=== PATIENT | male | born 1970 | race Two or more races ===

== ENCOUNTER 2020-11-02 10:40 | Inpatient (IN) | payer OTHER ==
[2020-11-02 11:27] VITALS: BMI 20.7
[2020-11-02] MEDS ORDERED: MENTHOL/PHENOL 1 EACH UD MM PRN (13:38)
[2020-11-02] MEDS ORDERED: METHADONE HCL 10 MG TABLET (FOR DETOX USE ONLY) PO ONE (13:38)
[2020-11-02] MEDS ORDERED: NICOTINE POLACRILEX 2 MG GUM BUC PRN (13:38)
[2020-11-02] MEDS ORDERED: MAG HYDROX/AL HYDROX/SIMETH 30 ML UNIT-DOSE CUP PO PRN (13:38)
[2020-11-02] MEDS ORDERED: MAGNESIUM HYDROX 2400MG/30ML ORAL SUSPENSION 30 ML CUP PO PRN (13:38)
[2020-11-02] MEDS ORDERED: BISMUTH SUBSALICYLATE 262 MG/15 ML BTL PO PRN (13:38)
[2020-11-02] MEDS ORDERED: MAGNESIUM CITRATE 300 ML BOTTLE PO PRN (13:38)
[2020-11-02] MEDS ORDERED: chlordiazePOXIDE HCL 25 MG CAPSULE PO PRN (13:38)
[2020-11-02] MEDS ORDERED: METHOCARBAMOL 500 MG TABLET PO PRN (13:38)
[2020-11-02] MEDS ORDERED: ONDANSETRON *ODT* 4 MG TABLET SL PRN (13:38)
[2020-11-02] MEDS ORDERED: ACETAMINOPHEN 325 MG TABLET (FP) PO PRN ×2 (13:38)
[2020-11-02] MEDS ORDERED: cloNIDine HCL 0.1 MG TABLET PO PRN (13:38)
[2020-11-02] MEDS: NICOTINE 21 MG/24 HOURS TOPICAL PATCH TD SCH (15:20)
[2020-11-02] MEDS: TOLNAFTATE 1% CREAM 15 GM TUBE TP SCH ×2 (15:25→21:32)
[2020-11-02] MEDS: PRENATAL VITAMINS W/ FOLIC ACID TABLET (FP) PO SCH (15:25)
[2020-11-02] MEDS: hydrOXYzine PAMOATE 25 MG CAPSULE (FP) PO SCH ×3 (15:28→21:17)
[2020-11-02 17:30] LABS: POTASSIUM 3.9 mmol/L (3.5-5.1)
[2020-11-02 17:32] LABS: CALCIUM 9.2 mg/dL (8.5-10.1)
[2020-11-02 17:33] LABS: ALBUMIN 3.9 g/dl (3.4-5.0)
[2020-11-02 17:36] LABS: CREATININE 1.1 mg/dL (0.55-1.3); HEMATOCRIT 41.2 % (35.4-49); HEMOGLOBIN 14.3 GM/dL (11.7-16.9); MCH 33.1 pg (25.7-33.7); MCHC 34.7 g/dl (32.0-35.9); MEAN CELL VOLUME 95.3 fl (80-96); MEAN PLT VOLUME 8.2 fl (7.5-11.1); PLATELET COUNT 299 K/MM3 (134-434); RBC 4.32 M/mm3 (4.00-5.60); WHITE BLOOD COUNT 7.3 K/mm3 (4.0-10.0)
[2020-11-02 17:37] LABS: BILIRUBIN,TOTAL 0.4 mg/dL (0.2-1)
[2020-11-02 17:38] LABS: TOT PROT 8.2 g/dl (6.4-8.2)
[2020-11-02] MEDS: chlordiazePOXIDE HCL 25 MG CAPSULE PO SCH ×2 (18:12→22:00)
[2020-11-02] MEDS: THIAMINE HCL 100 MG TABLET (FP) PO SCH (21:17)
[2020-11-02] MEDS: MELATONIN 5 MG TABLETS PO SCH (21:17)
[2020-11-03] MEDS: hydrOXYzine PAMOATE 25 MG CAPSULE (FP) PO SCH ×5 (06:03→23:10)
[2020-11-03] MEDS: chlordiazePOXIDE HCL 25 MG CAPSULE PO SCH ×4 (06:04→23:08)
[2020-11-03] MEDS ORDERED: METHADONE HCL 10 MG TABLET (FOR DETOX USE ONLY) ONE (06:42)
[2020-11-03] MEDS ORDERED: METHADONE HCL 40 MG DISPERSABLE TABLET ONE (06:42)
[2020-11-03] MEDS: METHADONE 40 MG, METHADONE (DETOX) 30 MG PO SCH (06:44)
[2020-11-03] MEDS ORDERED: METHADONE HCL 10 MG TABLET PO SCH (06:45)
[2020-11-03] MEDS ORDERED: MASKS NR ONE (09:34)
[2020-11-03] MEDS ORDERED: COLLOIDAL OATMEAL 1 BAR EACH TP PRN (09:40)
[2020-11-03] MEDS ORDERED: METHADONE (DETOX) 20 MG, METHADONE (DETOX) 5 MG PO ONE (10:00)
[2020-11-03] MEDS ORDERED: METHADONE 40 MG, METHADONE 30 MG PO SCH (10:00)
[2020-11-03] MEDS ORDERED: METHADONE HCL 40 MG DISPERSABLE TABLET PO SCH (10:00)
[2020-11-03] MEDS: BACITRACIN 0.9 GM PACKET TP SCH ×2 (10:12→23:04)
[2020-11-03] MEDS: NICOTINE 21 MG/24 HOURS TOPICAL PATCH TD SCH (10:13)
[2020-11-03] MEDS: TOLNAFTATE 1% CREAM 15 GM TUBE TP SCH ×2 (10:13→23:10)
[2020-11-03] MEDS: PRENATAL VITAMINS W/ FOLIC ACID TABLET (FP) PO SCH (10:13)
[2020-11-03] MEDS: MINERAL OIL/PETROLAT/WATER TOPICAL CREAM 113 GM JAR TP SCH ×2 (10:50→23:07)
[2020-11-03 12:35] LABS: HIV INTERPRETATION NEGATIVE (NEGATIVE)
[2020-11-03] MEDS: IBUPROFEN 400 MG TABLET (FP) PO PRN (17:42)
[2020-11-03] MEDS: MELATONIN 5 MG TABLETS PO SCH (23:09)
[2020-11-03] MEDS: THIAMINE HCL 100 MG TABLET (FP) PO SCH (23:10)
[2020-11-04] MEDS ORDERED: METHADONE HCL 40 MG DISPERSABLE TABLET ONE (04:02)
[2020-11-04] MEDS ORDERED: METHADONE HCL 10 MG TABLET (FOR DETOX USE ONLY) ONE (04:02)
[2020-11-04] MEDS: hydrOXYzine PAMOATE 25 MG CAPSULE (FP) PO SCH ×2 (06:03→10:20)
[2020-11-04] MEDS: METHADONE 40 MG, METHADONE (DETOX) 30 MG PO SCH (06:05)
[2020-11-04] MEDS: chlordiazePOXIDE HCL 25 MG CAPSULE PO SCH ×4 (06:06→23:20)
[2020-11-04] MEDS: IBUPROFEN 400 MG TABLET (FP) PO PRN ×2 (07:09→18:00)
[2020-11-04] MEDS ORDERED: BACITRACIN 0.9 GM PACKET TP SCH (10:00)
[2020-11-04] MEDS ORDERED: METHADONE HCL 10 MG TABLET (FOR DETOX USE ONLY) PO ONE (10:00)
[2020-11-04] MEDS ORDERED: BACITRACIN 15 GM TUBE TOPICAL OINTMENT TP SCH (10:00)
[2020-11-04] MEDS: NICOTINE 21 MG/24 HOURS TOPICAL PATCH TD SCH (10:20)
[2020-11-04] MEDS: MINERAL OIL/PETROLAT/WATER TOPICAL CREAM 113 GM JAR TP SCH ×2 (10:22→23:23)
[2020-11-04] MEDS: BACITRACIN 0.9 GM PACKET TP SCH ×3 (10:22→23:23)
[2020-11-04] MEDS: TOLNAFTATE 1% CREAM 15 GM TUBE TP SCH ×2 (10:23→23:23)
[2020-11-04] MEDS: PRENATAL VITAMINS W/ FOLIC ACID TABLET (FP) PO SCH (10:23)
[2020-11-04] MEDS: THIAMINE HCL 100 MG TABLET (FP) PO SCH (23:20)
[2020-11-04] MEDS: MELATONIN 5 MG TABLETS PO SCH (23:22)
[2020-11-05] MEDS ORDERED: chlordiazePOXIDE HCL 10 MG CAPSULE PO PRN
[2020-11-05] MEDS ORDERED: METHADONE HCL 40 MG DISPERSABLE TABLET ONE (03:19)
[2020-11-05] MEDS ORDERED: METHADONE HCL 10 MG TABLET (FOR DETOX USE ONLY) ONE (03:20)
[2020-11-05] MEDS: METHADONE 40 MG, METHADONE (DETOX) 30 MG PO SCH (07:03)
[2020-11-05] MEDS: chlordiazePOXIDE HCL 10 MG CAPSULE PO SCH ×2 (07:05→07:13)
[2020-11-05] MEDS ORDERED: cloNIDine HCL 0.1 MG TABLET PO ONE (08:15)
[2020-11-05 09:44] VITALS: BP 169/118; PULSE 84; TEMP 97.3
[2020-11-05] MEDS ORDERED: METHADONE (DETOX) 10 MG, METHADONE (DETOX) 5 MG PO ONE (10:00)
[2020-11-06] MEDS ORDERED: chlordiazePOXIDE HCL 10 MG CAPSULE PO SCH (05:00)
[2020-11-06] MEDS ORDERED: METHADONE HCL 10 MG TABLET (FOR DETOX USE ONLY) PO ONE (10:00)
[2020-11-07] MEDS ORDERED: chlordiazePOXIDE HCL 10 MG CAPSULE PO ONE (05:00)
[2020-11-07] MEDS ORDERED: METHADONE HCL 5 MG TABLET (FOR DETOX USE ONLY) PO ONE (06:00)
== END 2020-11-05 09:12 | disposition left against medical advice (07) | DRG 770 ==
LOC: YASAS 10:40 → Y6N 14:25
PROVIDERS: ADMIT Allergy & Immunology; ATTEND Allergy & Immunology
PROC: HZ2ZZZZ Detoxification Services for Substance Abuse Treatment (ICD-10-PCS; principal; 2020-11-02)
DX: F11.23 Opioid dependence with withdrawal (principal); F10.230 Alcohol dependence with withdrawal, uncomplicated; F14.10 Cocaine abuse, uncomplicated; F12.10 Cannabis abuse, uncomplicated; F17.210 Nicotine dependence, cigarettes, uncomplicated; R64 Cachexia; L85.3 Xerosis cutis; R79.89 Other specified abnormal findings of blood chemistry; R63.4 Abnormal weight loss; Z62.810 Personal history of physical and sexual abuse in childhood; S09.90XA Unspecified injury of head, initial encounter; S80.11XA Contusion of right lower leg, initial encounter; W18.39XA Other fall on same level, initial encounter; Y93.89 Activity, other specified; Y92.230 Patient room in hospital as the place of occurrence of the external cause; Y99.8 Other external cause status
CPT/HCPCS: 36415; 80053; 85027; 86780; 87389; C9803; J0735; Q0162; U0003

== ENCOUNTER 2023-10-05 17:48 | Inpatient (IN) | payer OTHER ==
[2023-10-05 18:15] VITALS: BMI 19.6
[2023-10-05] MEDS ORDERED: LOPERAMIDE HCL 2 MG CAPSULE PO PRN (21:16)
[2023-10-05] MEDS ORDERED: BENZOCAINE/MENTHOL (CHLORASEPTIC ) LOZENGE MM PRN (21:16)
[2023-10-05] MEDS ORDERED: POLYETHYLENE GLYCOL (HEALTHYLAX) 3350 17 GM PACKET PO PRN (21:16)
[2023-10-05] MEDS ORDERED: guaiFENesin 600 MG TABLET.ER (FP) PO PRN (21:16)
[2023-10-05] MEDS ORDERED: NALOXONE HCL 0.4 MG/ML VIAL IM PRN (21:16)
[2023-10-05] MEDS ORDERED: MAG HYDROX/AL HYDROX/SIMETH 30 ML UNIT-DOSE CUP PO PRN (21:16)
[2023-10-05] MEDS ORDERED: NALOXONE HCL (KLOXXADO) 8 MG SPRAY NS PRN (21:16)
[2023-10-05] MEDS ORDERED: ONDANSETRON *ODT* 4 MG TABLET SL PRN (21:16)
[2023-10-05] MEDS ORDERED: P-EPHED 60MG/TRIPROLIDI 2.5MG TABLET PO PRN (21:16)
[2023-10-05] MEDS ORDERED: BENZONATATE 200 MG CAPSULE PO PRN (21:16)
[2023-10-05] MEDS ORDERED: IBUPROFEN 400 MG TABLET (FP) PO PRN (21:16)
[2023-10-05] MEDS ORDERED: BISMUTH SUBSALICYLATE 524 MG/30 ML PO PRN (21:16)
[2023-10-05] MEDS ORDERED: NICOTINE POLACRILEX 2 MG LOZENGE BC PRN (21:16)
[2023-10-05] MEDS ORDERED: DICYCLOMINE HCL 10 MG CAPSULE PO PRN (21:16)
[2023-10-05] MEDS ORDERED: MELATONIN 5 MG TABLETS PO SCH (22:00)
[2023-10-05] MEDS: hydrOXYzine PAMOATE 25 MG CAPSULE (FP) PO PRN (22:08)
[2023-10-05] MEDS ORDERED: MELATONIN 5 MG TABLETS ONE (22:10)
[2023-10-05] MEDS ORDERED: hydrOXYzine PAMOATE 25 MG CAPSULE (FP) PO ONE (22:10)
[2023-10-05] MEDS: MELATONIN 5 MG TABLETS PO SCH (22:20)
[2023-10-06] MEDS: cloNIDine HCL 0.1 MG TABLET PO PRN ×3 (02:45→17:27)
[2023-10-06] MEDS: IBUPROFEN 600 MG TABLET (FP) PO PRN ×2 (02:45→15:51)
[2023-10-06] MEDS: BACITRACIN 0.9 GM PACKET TP SCH ×3 (03:34→22:44)
[2023-10-06] MEDS: FLUTICASONE PROP 0.05% 16 GM NASAL SPRAY NS SCH ×3 (03:35→22:44)
[2023-10-06] MEDS: THIAMINE HCL 100 MG TABLET (FP) PO SCH ×2 (03:35→22:44)
[2023-10-06] MEDS: METHOCARBAMOL 500 MG TABLET PO PRN ×2 (04:28→17:28)
[2023-10-06] MEDS: ACETAMINOPHEN 325 MG TABLET (FP) PO PRN (06:52)
[2023-10-06] MEDS: MAGNESIUM HYDROX 2400MG/30ML ORAL SUSPENSION 30 ML CUP PO PRN ×2 (06:53→16:24)
[2023-10-06] MEDS: AMOX TR/POT CLAV 875MG/125MG TABLETS (FP) PO SCH ×2 (07:07→17:27)
[2023-10-06] MEDS: PRENATAL VITAMINS W/ FOLIC ACID TABLET (FP) PO SCH (10:30)
[2023-10-06] MEDS: chlordiazePOXIDE HCL 25 MG CAPSULE PO PRN (10:31)
[2023-10-06] MEDS: chlordiazePOXIDE HCL 25 MG CAPSULE PO SCH ×3 (10:41→22:45)
[2023-10-06] MEDS ORDERED: methaDONE HCL 10 MG TABLET (FOR DETOX USE ONLY) PO ONE (11:00)
[2023-10-06 14:33] LABS: CHLORIDE 106 mmol/L (98-107); SODIUM 139 mmol/L (136-145)
[2023-10-06 14:34] LABS: HEMATOCRIT 34.4 % (35.4-49); HEMOGLOBIN 11.8 GM/dL (11.7-16.9); MCH 32.8 pg (25.7-33.7); MCHC 34.3 g/dl (32.0-35.9); MEAN CELL VOLUME 95.5 fl (80-96); MEAN PLT VOLUME 8.2 fl (7.5-11.1); PLATELET COUNT 203 10^3/uL (134-434); RDW 12.8 % (11.9-15.9); WHITE BLOOD COUNT 4.8 K/mm3 (4.0-10.0)
[2023-10-06 14:41] LABS: CREATININE 0.7 mg/dL (0.55-1.3)
[2023-10-06 14:42] LABS: ALBUMIN 2.9 g/dl (3.4-5.0); BILIRUBIN,TOTAL 0.5 mg/dL (0.2-1); BLOOD UREA NITROGEN 17.9 mg/dL (7-18); GLUCOSE,RANDOM 139 mg/dL (74-106); SGOT/AST 64 U/L (15-37); TOT PROT 6.4 g/dl (6.4-8.2)
[2023-10-06 14:44] LABS: ALK PHOS 93 U/L (45-117)
[2023-10-06 14:45] LABS: SGPT/ALT 71 U/L (13-61)
[2023-10-06 14:46] LABS: ANION GAP 5 mmol/L (4-13); CO2 29 mmol/L (21-32)
[2023-10-06 14:58] LABS: CALCIUM 8.1 mg/dL (8.5-10.1)
[2023-10-06] MEDS ORDERED: amLODIPine BESYLATE 5 MG TABLET (FP) PO ONE (19:15)
[2023-10-06] MEDS: MELATONIN 5 MG TABLETS PO SCH (22:45)
[2023-10-07] MEDS: IBUPROFEN 600 MG TABLET (FP) PO PRN (01:44)
[2023-10-07] MEDS: hydrOXYzine PAMOATE 25 MG CAPSULE (FP) PO PRN (01:44)
[2023-10-07] MEDS: cloNIDine HCL 0.1 MG TABLET PO PRN (04:30)
[2023-10-07] MEDS: chlordiazePOXIDE HCL 10 MG CAPSULE PO SCH ×2 (04:31→10:52)
[2023-10-07] MEDS: METHOCARBAMOL 500 MG TABLET PO PRN (04:31)
[2023-10-07] MEDS: ACETAMINOPHEN 325 MG TABLET (FP) PO PRN (04:31)
[2023-10-07 06:22] VITALS: BP 156/96; PULSE 69; RESP 17; TEMP 97.8
[2023-10-07] MEDS: AMOX TR/POT CLAV 875MG/125MG TABLETS (FP) PO SCH (07:18)
[2023-10-07] MEDS: chlordiazePOXIDE HCL 25 MG CAPSULE PO PRN (07:44)
[2023-10-07] MEDS: BACITRACIN 0.9 GM PACKET TP SCH (10:51)
[2023-10-07] MEDS: PRENATAL VITAMINS W/ FOLIC ACID TABLET (FP) PO SCH (10:52)
[2023-10-07] MEDS: FLUTICASONE PROP 0.05% 16 GM NASAL SPRAY NS SCH (10:52)
[2023-10-08] MEDS ORDERED: chlordiazePOXIDE HCL 10 MG CAPSULE PO SCH (05:00)
[2023-10-08] MEDS ORDERED: methaDONE HCL 10 MG TABLET (FOR DETOX USE ONLY) PO ONE (10:00)
[2023-10-09] MEDS ORDERED: chlordiazePOXIDE HCL 10 MG CAPSULE PO PRN
[2023-10-09] MEDS ORDERED: chlordiazePOXIDE HCL 10 MG CAPSULE PO ONE (05:00)
[2023-10-10] MEDS ORDERED: methaDONE HCL 10 MG TABLET (FOR DETOX USE ONLY) PO ONE (10:00)
== END 2023-10-07 10:00 | disposition left against medical advice (07) | DRG 770 ==
LOC: YASAS 17:48 → Y6N 10-06 02:18
PROVIDERS: ADMIT Allergy & Immunology; ATTEND Allergy & Immunology
PROC: HZ2ZZZZ Detoxification Services for Substance Abuse Treatment (ICD-10-PCS; principal; 2023-10-06)
DX: F11.23 Opioid dependence with withdrawal (principal); F10.230 Alcohol dependence with withdrawal, uncomplicated; F14.20 Cocaine dependence, uncomplicated; F12.10 Cannabis abuse, uncomplicated; F17.210 Nicotine dependence, cigarettes, uncomplicated; I10 Essential (primary) hypertension; R63.4 Abnormal weight loss; Z68.1 Body mass index [BMI] 19.9 or less, adult; Z86.19 Personal history of other infectious and parasitic diseases; Z59.02 Unsheltered homelessness; Z56.0 Unemployment, unspecified
CPT/HCPCS: 0241U-QW; 36415; 80053; 80307; 85027; 86780